=== PATIENT | female | born 1995 | race Two or more races ===

== ENCOUNTER 2016-09-26 23:23 | Emergency (ER) | payer MEDICAID ==
[~2016-09-26] VITALS: Ht 160 cm; Wt 51.3 kg
[2016-09-27 03:00] VITALS: BP 133/77
== END 2016-09-27 03:13 | disposition home or self-care (01) ==
LOC: ER 23:29
DX: M54.5 Low back pain (principal); M54.16 Radiculopathy, lumbar region; Q76.49 Other congenital malformations of spine, not associated with scoliosis
CPT/HCPCS: 72100

== ENCOUNTER 2016-12-11 02:00 | Emergency (ER) | payer MEDICAID ==
[~2016-12-11] VITALS: Ht 160 cm; Wt 51.3 kg
[2016-12-11 04:33] VITALS: BP 118/84
[2016-12-11] MEDS ORDERED: IBUPROFEN 600 MG TAB PO ONE (05:00)
== END 2016-12-11 05:17 | disposition home or self-care (01) ==
LOC: ER 02:03
DX: S01.81XA Laceration without foreign body of other part of head, initial encounter (principal); R42 Dizziness and giddiness; W22.8XXA Striking against or struck by other objects, initial encounter; Y93.89 Activity, other specified; Y99.8 Other external cause status; Y92.89 Other specified places as the place of occurrence of the external cause
CPT/HCPCS: 81025

== ENCOUNTER 2018-08-17 00:50 | Emergency (ER) | payer MEDICAID ==
[~2018-08-17] VITALS: Ht 160 cm; Wt 56.7 kg
[2018-08-17 03:36] VITALS: BP 131/84
[2018-08-17] MEDS ORDERED: LORazepam 0.5 MG TAB PO ONE (03:45)
== END 2018-08-17 04:20 | disposition home or self-care (01) ==
LOC: ER 00:50
DX: F41.9 Anxiety disorder, unspecified (principal)